=== PATIENT | female | born 1965 | race African-American/Black ===

== ENCOUNTER 2022-11-14 12:55 | Emergency (ER) | payer OTHER, SELFPAY ==
[2022-11-14] VITALS (7 sets, daily range): BP systolic 134–170; BP diastolic 83–125; PULSE 76–99; RESP 13–23; TEMP 36.9; O2SAT 97–100
--- NOTE | ~2022-11-14 | CT_ITS ---
Non-contrast Head CT History: Altered mental status Technique: Axial non-contrast imaging of the brain was performed. Dose reduction technique was used on this scan by utilizing automated exposure control and iterative reconstruction technique. The dose -length product (DLP) was 605.33 mGy-cm. Findings: There is no evidence of intracranial hemorrhage, mass lesion, or acute infarct. Brain par enchyma appears normal. The ventricles and subarachnoid spaces are normal in size. The calvarium ap pears normal. The visualized paranasal sinuses and mastoid air cells are clear. 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 Impression: No acute abnormality seen. Reviewed, dictated and finalized at location . Impression: No acute abnormality seen.
--- NOTE | 2022-11-14 13:11 | ECG_ITS ---
Measurements Intervals [place] Rate: 80 P: 57 MO: 193 QRS: 27 QRSD: 92 T: 56 QT: 422 QTc: 488 Interpretive Statements SINUS RHYTHM VOLTAGE CRITERIA FOR LVH BORDERLINE ECG NO PREVIOUS ECG AVAILABLE FOR COMPARISON Electronically Signed On 11-15-2022 11:10:59 CDT by Shyam Ayala D.O.
--- NOTE | 2022-11-14 13:37 | ED.AMS ---
HPI - Altered Mental Status General Chief Complaint: Altered Mental Status <Gaetano Garcia MD - Last Filed: 11/15/22 13:25> Stated Complaint: on drugs, found on street by PD <Gaetano Garcia MD - Last Filed: 11/15/22 13:25> Time Seen by Provider: 11/14/22 13:22 <Gaetano Garcia MD - Last Filed: 11/15/22 13:25> History of Present Illness HPI narrative: 56-year-old female presented the emergency department for evaluation of altered mental status and suspected intoxication. Patient denies any pain or injury. Patient was brought to the hospital by EMS for request by police. They state initially patient was not responding to questions. Upon arrival to emergency department patient is alert and oriented x3. Patient does appear intoxicated. Patient denies any pain or injury. Patient denies taking medications or to hurt herself. <Gaetano Garcia MD - Last Filed: 11/15/22 13:25> Related Data Allergies/Adverse Reactions: Allergies Allergy/AdvReac Type Severity Reaction Status Date / Time No Known Allergies Allergy Verified 11/14/22 13:07 <Gaetano Garcia MD - Last Filed: 11/15/22 13:25> Review of Systems Review of Systems: All systems reviewed & are unremarkable except as noted in HPI and below <Gaetano Garcia MD - Last Filed: 11/15/22 13:25> Exam Narrative: APPEARANCE: Well appearing, no pain, no distress, well-nourished. HEAD: normocephalic, atraumatic. EYES: PERRLA/EOMI, conjunctivae clear. NOSE: Normal no drainage THROAT: Pharynx clear, no exudate. NECK: Supple. No adenopathy, no masses. RESPIRATORY: Airway patent, respirations nonlabored. Clear to auscultation bilaterally, no rales, rhonchi, wheezing. CARDIOVASCULAR: Regular rate and rhythm without murmurs rubs or gallops. ABDOMINAL: Soft, nontender, nondistended, normal bowel sounds MUSCULOSKELETAL: Moves all extremities. Strength/ROM intact, No edema, No calf tenderness. NEURO: Alert. Cranial nerves II through XII intact. Grossly intact SKIN: Warm, dry. Normal Color <Gaetano Garcia MD - Last Filed: 11/15/22 13:25> Course Course Emergency Course: 56-year-old female presented to the emergency department for evaluation. Head CT was ordered to evaluate for intracranial injury. Baseline labs including ethanol were also ordered to evaluate for intoxication. Patient is resting comfortably at this time. Patient denies any pain or complaints. Patient is highly intoxicated with a blood alcohol of 419. Patient is more alert and appropriate during her stay. Patient denies any pain or injury. Patient is eating food that she brought to the emergency department. Patient denies any homicidal suicidal ideation. Patient is currently homeless and states she does not have a ride or location to go to. Patient was treated with IV thiamine and normal saline. Patient also had a potassium of 3.0 and this was replaced orally. At time of signout patient is awaiting a blood alcohol of less than 80 and patient would benefit from care coordination. <Gaetano Garcia MD - Last Filed: 11/15/22 13:25> 56-year-old female presented to the emergency department for evaluation. Head CT was ordered to evaluate for intracranial injury. Baseline labs including ethanol were also ordered to evaluate for intoxication. Patient is resting comfortably at this time. Patient denies any pain or complaints. Patient is highly intoxicated with a blood alcohol of 419. Patient is more alert and appropriate during her stay. Patient denies any pain or injury. Patient is eating food that she brought to the emergency department. Patient denies any homicidal suicidal ideation. Patient is currently homeless and states she does not have a ride or location to go to. Patient was treated with IV thiamine and normal saline. Patient also had a potassium of 3.0 and this was replaced orally. At time of signout patient is awaiting a blood alcohol of less than 80 a
[2022-11-14 13:46] LABS: Basophils Percent Auto 1.1 % (0.2-1.2); Eosinophils Absolute Auto 0.1 K/mm3 (0-0.3); Eosinophils Percent Auto 2.4 % (0-4.4); Hematocrit 30.8 % (37.0-47.0); Hemoglobin 9.7 g/dL (12.0-15.0); Lymphocytes Absolute Auto 2.43 K/mm3 (0.9-3.2); Mean Corpuscular HGB Conc 31.5 g/dl (32-36); Mean Corpuscular Hemoglobin 23.8 pg (26-34); Mean Corpuscular Volume 75.7 fl (80-100); Mean Platelet Volume 9.9 fl (7.4-10.4); Monocytes Absolute Auto 0.3 K/mm3 (0.1-0.6); Monocytes Percent Auto 7.8 % (2.6-8.5); Neutrophils Absolute Auto 0.9 K/mm3 (1.3-6.7); Neutrophils Percent Auto 23.7 % (45.5-73.1); Platelet Count Result 206 k/mm3 (150-375); Red Blood Count 4.07 M/mm3 (4.2-5.4); Red Cell Distribution Width 15.1 % (11.5-14.5); White Blood Count 3.7 K/mm3 (4.5-10.0)
--- NOTE | 2022-11-14 13:49 | PC.NURSE ---
When preforming straight cath, a large amount of white vaginal discharge was observed.
[2022-11-14 13:55] LABS: Alanine Aminotransferase 19 U/L (6-35); Alkaline Phosphatase 97 U/L (38-126); Anion Gap 10 mmol/L (8-16); Aspartate Amino Transferase 29 U/L (14-36); Bilirubin,Total 0.3 mg/dL (0.2-1.3); Blood Urea Nitrogen 11 mg/dL (7-17); Calcium 8.1 mg/dL (8.4-10.2); Carbon Dioxide 28 mmol/L (22-30); Chloride 111 mmol/L (98-107); Estimated CRCL calculation 60 ml/min; Estimated Glomerular Filt Rate > 60; Glucose 87 mg/dL (65-110); Prothrombin Time 13.4 Seconds (11.1-14.7); Sodium 149 mmol/L (137-145)
[2022-11-14 13:57] LABS: Partial Thromboplastin Time 28.2 SECONDS (22.3-36.8)
[2022-11-14 14:09] LABS: Platelet Estimate Adequate (Adequate); Target Cells 2+ (NORMAL)
[2022-11-14 14:10] LABS: Schistocytes None Seen (NORMAL)
[2022-11-14] MEDS: POTASSIUM CHLORIDE 20 MEQ PACKET (FOR LIQUID) 40 MEQ PO (14:12)
[2022-11-14 14:21] LABS: Amphetamine Screen Urine Negative (Negative); Barbiturate Screen Urine Negative (Negative); Benzodiazepines Screen Urine Negative (Negative); Cannabinoid Screen Urine Negative (Negative); Cocaine Screen Urine Negative (Negative); Methadone Screen Urine Negative (Negative); Opiate Screen Urine Negative (Negative); Phencyclidine Screen Urine Negative (Negative)
[2022-11-14 14:25] LABS: Appearance Urine Clear (Clear); Bacteria Urine None Seen /hpf; Bilirubin Urine Negative (Negative); Blood Urine Negative (Negative); Color Urine Yellow (Yellow); Glucose Urine UA Negative (Negative); Ketones Urine Negative (Negative); Leukocyte Esterase Ur Negative LEU/UL (Negative); Need Manual Microscopic Reviewed; Nitrate Urine Negative (Negative); Non Pathogenic Casts 0-2; Protein Urine Trace mg/dL (Negative); RBC Urine 0-2 /hpf (0-2); Specific Grav Ur 1.014 (1.001-1.035); Squamous Epithelial Cell Urine None seen /hpf (Few); WBC Urine 0-5 /hpf; pH Urine 6.5 (5.0-9.0)
[2022-11-14 14:26] LABS: Add Urine Microscopic? YES
[2022-11-14 14:52] LABS: Ethanol 419 mg/dL (<10)
[2022-11-14] MEDS: SODIUM CHLORIDE 0.9% IV 1,000 ML 999 ML IV CONT ×2 (16:01→19:44)
[2022-11-14] MEDS: THIAMINE HCL 200 MG/2 ML VIAL 100 MG IV PUSH (16:01)
--- NOTE | 2022-11-14 19:30 | PC.NURSE ---
Pt states to this RN I'm ready to go now . Pt is confused and doesn't know where she is. Informed pt she is at [facility]. Asked pt if she remembers what happened but she does not. Pt refuses to answer some questions. Noted that there was a cigarette and cushion builder on bedside table. Those items removed from pt's reach.
[2022-11-14] MEDS: hydrALAZINE HCL 20 MG/ML VIAL 10 MG IV PUSH (19:44)
--- NOTE | 2022-11-14 20:30 | PC.NURSE ---
Pt becoming increasingly more agitated, insisting she go home. Dr. Garcia notified.
[2022-11-14] MEDS: LORazepam INJ (*CRX) 2 MG/ML VIAL 1 MG IV PUSH (20:41)
--- NOTE | 2022-11-14 20:56 | PC.NURSE ---
Pt spilled urine out of bedpan after refusing help. Bed linens and gown changed. Warm blanket and socks given to pt. Pt requesting something to eat. Markesan sandwich given to pt.
[2022-11-15 01:15] VITALS: BP 163/96; PULSE 92; RESP 20; O2SAT 100
--- NOTE | 2022-11-15 02:14 | PC.NURSE ---
Called lab to inquire about pending alcohol level. No results yet.
[2022-11-15 02:20] LABS: Ethanol 59 mg/dL (<10)
--- NOTE | 2022-11-15 02:27 | PC.NURSE ---
Notified pt that her alcohol levels are under legal limit. Offered pt to stay in the ER until morning when care coordination gets here. Pt agrees to remain in the ED until care coordination arrives. Pt denies SI/HI. She is calm and cooperative.
--- NOTE | 2022-11-15 03:33 | PC.NURSE ---
Pt observed getting dressed in her room. Reminded her that she can stay until care coordination gets here in the morning. Pt states I'm gonna go . Will notify Dr. Amezquita.
[2022-11-15 03:53] VITALS: BP 150/88; PULSE 100; RESP 20; O2SAT 99
== END 2022-11-15 03:53 | disposition home or self-care (01) ==
PROVIDERS: Emergency Provider Emergency Medicine
DX: F10.129 Alcohol abuse with intoxication, unspecified (principal); Y90.8 Blood alcohol level of 240 mg/100 ml or more
CPT/HCPCS: 36415; 70450; 80053; 80307; 81001; 85025; 85610; 85730; 87070; 87491; 87591; 87808; 93005; 96361; 96374; 96375; 99284; A9270; J0360; J2060; J3411; J7030

== ENCOUNTER 2022-11-19 15:33 | Emergency (ER) | payer OTHER, SELFPAY ==
[2022-11-19] VITALS (7 sets, daily range): BP systolic 148–182; BP diastolic 101–117; PULSE 84–114; RESP 16–23; TEMP 36.6; O2SAT 89–100
--- NOTE | 2022-11-19 16:48 | ECG_ITS ---
Measurements Intervals [place] Rate: 98 P: 16 [place]: 141 QRS: 19 QRSD: 89 T: 70 QT: 375 QTc: 480 Interpretive Statements SINUS RHYTHM POSSIBLE LEFT ATRIAL ENLARGEMENT LEFT VENTRICULAR HYPERTROPHY WITH ST-T CHANGE BASELINE ARTIFACT- I, II, III, AVR, AVL, AVF, V1-V6 BORDERLINE ECG COMPARED TO ECG 11/14/2022 13:25:49 NO SIGNIFICANT CHANGES Electronically Signed On 11-19-2022 17:34:51 CDT by Shyam Ayala D.O.
[2022-11-19 17:24] LABS: Basophils Percent Auto 0.5 % (0.2-1.2); Eosinophils Percent Auto 0.5 % (0-4.4); Hematocrit 36.9 % (37.0-47.0); Immature Granulocyte Absolute 0.02 K/mm3 (0.00-0.031); Immature Granulocyte Percent A 0.3 % (0-0.5); Lymphocytes Percent Auto 17.4 % (18.3-44.2); Mean Corpuscular HGB Conc 32.5 g/dl (32-36); Mean Corpuscular Hemoglobin 24.5 pg (26-34); Mean Corpuscular Volume 75.5 fl (80-100); Mean Platelet Volume 10.9 fl (7.4-10.4); Monocytes Absolute Auto 0.5 K/mm3 (0.1-0.6); Monocytes Percent Auto 7.6 % (2.6-8.5); Neutrophils Absolute Auto 4.7 K/mm3 (1.3-6.7); Neutrophils Percent Auto 73.7 % (45.5-73.1); Platelet Count Result 240 k/mm3 (150-375); Red Blood Count 4.89 M/mm3 (4.2-5.4); Red Cell Distribution Width 15.3 % (11.5-14.5); White Blood Count 6.3 K/mm3 (4.5-10.0)
[2022-11-19 18:18] LABS: INR 0.9; Prothrombin Time 12.7 Seconds (11.1-14.7)
[2022-11-19 18:58] LABS: Alanine Aminotransferase 32 U/L (6-35); Albumin Level 4.9 g/dL (3.5-5.1); Alkaline Phosphatase 110 U/L (38-126); Anion Gap 9 mmol/L (8-16); Aspartate Amino Transferase 54 U/L (14-36); Bilirubin,Total 0.7 mg/dL (0.2-1.3); Blood Urea Nitrogen 14 mg/dL (7-17); Calcium 9.4 mg/dL (8.4-10.2); Carbon Dioxide 30 mmol/L (22-30); Chloride 95 mmol/L (98-107); Estimated Glomerular Filt Rate > 60; Glucose 125 mg/dL (65-110); Potassium 2.9 mmol/L (3.4-5.0); Sodium 134 mmol/L (137-145)
[2022-11-19] MEDS: hydrALAZINE HCL 20 MG/ML VIAL 10 MG IV PUSH (19:20)
--- NOTE | 2022-11-19 19:38 | ED.GENADULT ---
HPI - General Adult General Chief complaint: Altered Mental Status Stated complaint: AMS Source: patient Mode of arrival: ambulatory Limitations: no limitations History of Present Illness HPI narrative: 56-year-old was brought in by [facility] nurse from [facility] with complaints of elevated blood pressure. Patient presently denies having any headache, chest pain, shortness of breath or blurred vision. Patient states that she did not know that she had elevated blood pressure. Onset (ago): unknown Associated symptoms: denies other symptoms Related Data Allergies Allergy/AdvReac Type Severity Reaction Status Date / Time No Known Allergies Allergy Verified 11/19/22 19:05 Review of Systems Review of Systems: All systems reviewed & are unremarkable except as noted in HPI and below Constitutional: Constitutional: Reports no additional constitutional complaints Eyes: Eyes: Reports no additional eye complaints ENT: Reports system reviewed and no additional complaints, except as documented Cardiovascular: Cardiovascular: Reports no additional cardiovascular complaints Respiratory: Respiratory: Reports no additional respiratory complaints Gastrointestinal: Gastrointestinal: Reports no additional gastrointestinal complaints Musculoskeletal: Musculoskeletal: Reports no additional musculoskeletal complaints Neurologic: Reports system reviewed and no additional complaints, except as documented Psychiatric: Psychiatric: Reports no additional psychiatric complaints Exam Narrative: GENERAL: Well-appearing, well-nourished, and in no acute distress. HEAD: Normocephalic, atraumatic. EYES: PERRLA and EOMI. NECK: Supple. CHEST: Clear to auscultation. No respiratory distress. HEART: Regular rate and rhythm. No murmur heard. Normal peripheral pulses. ABDOMEN: Soft, nontender, nondistended, normal active bowel sounds. EXTREMITIES: Normal range of motion. No edema. SKIN: Warm, dry, no rash. NEURO: No focal deficits. Alert and oriented x3. PSYCH: Normal mood and affect. Course Course Emergency Course: Patient is asymptomatic however her blood pressure was elevated I did give her 10 of hydralazine which brought her pressure down to 155/101 informed her about lab work. I also discussed with nurse at [facility] level accepted patient to their system requested prescription for hypertension. Vital Signs Vital signs: Vital Signs Temperature 36.6 C 11/19/22 16:55 Pulse Rate 84 11/19/22 16:55 Respiratory Rate 18 11/19/22 16:55 Blood Pressure 182/112 H 11/19/22 16:55 Pulse Oximetry 98 11/19/22 16:55 Oxygen Delivery Room Air 11/19/22 16:55 Temperature 36.6 C 11/19/22 16:55 Pulse Rate 101 H 11/19/22 19:01 Respiratory Rate 23 H 11/19/22 19:01 Blood Pressure 176/117 H 11/19/22 19:01 Pulse Oximetry 99 11/19/22 19:01 Oxygen Delivery Room Air 11/19/22 17:50 Medical Decision Making Vital Signs Vital Signs: Vital Signs Temperature 36.6 C 11/19/22 16:55 Pulse Rate 84 11/19/22 16:55 Respiratory Rate 18 11/19/22 16:55 Blood Pressure 182/112 H 11/19/22 16:55 Pulse Oximetry 98 11/19/22 16:55 Oxygen Delivery Room Air 11/19/22 16:55 Temperature 36.6 C 11/19/22 16:55 Pulse Rate 101 H 11/19/22 19:01 Respiratory Rate 23 H 11/19/22 19:01 Blood Pressure 176/117 H 11/19/22 19:01 Pulse Oximetry 99 11/19/22 19:01 Oxygen Delivery Room Air 11/19/22 17:50 Lab Data 11/19/22 16:24 11/19/22 18:00 Labs: Lab Results 11/19/22 11/19/22 Range/Units 16:24 18:00 WBC 6.3 (4.5-10.0) K/mm3 RBC 4.89 (4.2-5.4) M/mm3 Hgb 12.0 (12.0-15.0) g/dL Hct 36.9 L (37.0-47.0) % MCV 75.5 L (80-100) fl MCH 24.5 L (26-34) pg MCHC 32.5 (32-36) g/dl RDW 15.3 H (11.5-14.5) % Plt Count 240 (150-375) k/mm3 MPV 10.9 H (7.4-10.4) fl Immature Gran % (Auto) 0.3 (0-0.5) % Neut % (Auto) 73.7 H
== END 2022-11-19 20:41 ==
PROVIDERS: Emergency Provider Family Medicine
DX: I10 Essential (primary) hypertension (principal); I51.7 Cardiomegaly; R94.31 Abnormal electrocardiogram [ECG] [EKG]
CPT/HCPCS: 36415; 80053; 85025; 85610; 93005; 96374; 99285; J0360